=== PATIENT | female | born 1980 | race Caucasian/White ===

== ENCOUNTER 2023-02-13 14:39 | Emergency (ER) | payer MEDICAID, SELFPAY ==
[2023-02-13 15:08] VITALS: BP 141/85; PULSE 86; RESP 16; TEMP 36.6; O2SAT 99
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
--- OUTSIDE RECORDS SUMMARY | 2023-02-13 15:21 | XMS_ITS | Continuity of Care Document ---
Author Name Unknown Organization [facility] Address [address] [place] [address] Care Team Providers Care Technical Agronomist Name Role Phone Eleuterio Bales Primary Care Physician Encounter [facility] Date(s): 10/01/22 - 10/01/[address] [phone] Encounter Diagnosis Cough(Discharge Diagnosis) - 10/01/22 Discharge Disposition: Home or Self Care Attending Physician: Whitney Nettles MD Admitting Physician: Whitney Nettles MD Allergies, Adverse Reactions, Alerts Substance Reaction Severity Status eszopiclone Nausea Unknown Active Assessment and Plan Extracted from: Title:Clinical Document Author:Latosha Au te:10/01/22 Diagnosis: 1. Cough Comment: Diagnosis: Cough Comment: Future Appointments Future Scheduled Tests Radiology* MG Mammo Screening Bilateral w/ Lambert 02/18/22 Functional Status 10/01/22 Family Member Travel History No recent t ravel Recent Travel History No recent travel Other exposure to Infectious Disease Non e Immunizations Given and Recorded Vaccine Date Status Refusal Reason influenza virus vaccine, inactivated 02/12/22 Give n influenza virus vaccine, inactivated 12/27/13 Lamberto rded influenza virus vaccine, inactivated 12/09/09 Lamberto rded influenza virus vaccine, inactivated 02/27/09 Lamberto rded influenza virus vaccine, inactivated 04/02/08 Lamberto rded influenza virus vaccine, inactivated 03/21/07 Lamberto rded influenza virus vaccine, inactivated 12/10/05 Lamberto rded influenza virus vaccine, live 02/21/20 Recorded influenza virus vaccine, live 12/12/17 Recorded influenza virus vaccine, live 11/12/16 Recorded tetanus/diphth/pertuss (Tdap) adult/adol 04/10/14 Recorded tetanus/diphth/pertuss (Tdap) adult/adol 08/05/11 Recorded Novel [id number], all formulation 02/27/09 Recorded rubella virus vaccine 02/15/00 Recorded Medications Albuterol (Eqv-Proventil HFA) 90 mcg/inh inhalation aerosol 2 puffs, Inhale, every 4 hr, PRN cough, # 18 g, 5 Refill(s), 10/02/23 12:35:00 PM CDT, Pharmacy: [facility], 167, cm, 10/01/22 12:48:00 EDT, Height/Length Dosing, 82.55, kg, 10/01/22 12:48:00 EDT, Weight Dosing Start Date: 10/01/22 Stop Date: 10/02/23 Status: Ordered buPROPion 300 mg/24 hours (XL) oral tablet, extended release 300 mg = 1 tab, Oral, Daily, # 90 tab, 3 Refill(s), Pharmacy: [id number] Start Date: 09/10/22 Status: Ordered busPIRone 7.5 mg oral tablet 7.5 mg = 1 tab, Oral, QID, TAKE 1 TABLET BY MOUTH 4 TIMES DAILY NEEDED, # 120 tab, 2 Refill(s), Pharmacy: [facility] Start Date: 08/26/22 Status: Ordered codeine-guaifenesin 10 mg-100 mg/5 mL oral syrup 10 mL, Oral, every 4 hr, PRN as needed for cough, X 7 days, # 120 mL, 0 Refill(s), 10/08/22 12:33:00PM CDT, Pharmacy: [facility], 167, cm, 10/01/22 12:48:00 EDT, Height/Length Dosing, 82.55, kg, 10/01/22 12:48:00 EDT, Weight Dosing Start Date: 10/01/22 Stop Date: 10/08/22 Status: Ordered doxycycline hyclate 100 mg oral capsule 100 mg = 1 cap, Oral, BID, # 14 cap, 0 Refill(s), Pharmacy: [facility], 167, cm, 10/02/2311:48:00 EDT, Height/Length Dosing, 82.55, kg, 10/01/22 12:48:00 EDT, Weight Dosing Start Date: 10/01/22 Stop Date: 10/08/22 Status: Ordered escitalopram 20 mg oral tablet 20 mg = 1 tab, Oral, Daily, # 90 tab, 3 Refill(s), Pharmacy: [id number] Start Date: 03/23/22 Status: Ordered hydrOXYzine hydrochloride 25 mg oral tablet 25 mg = 1 tab, Oral, QID, PRN as needed for anxiety, # 60 tab, 2 Refill(s), Pharmacy: [facility] Start Date: 09/10/22 Status: Ordered ibuprofen 600 mg oral tablet 600 mg = 1 tab, Oral, TID, As needed Start Date: 10/07/21 Status: Ordered Mirena 52 mg intrauteral device 52 mg 1 EA, 0 Refill(s) Start Date: 10/07/21 Status: Ordered Tessalon Perles 100 mg oral capsule 200 mg = 2 cap, Oral, TID, PRN as needed for cough, X 10 days, # 45 cap, 0 Refill(s), 10/11/22 12:33:00 PM CDT, Pharmacy: [facility], 167, cm, 10/01/22 12:48:00 EDT, Height/Length Dosing, 82.55, kg, 10/01/22 12:48:00 EDT, Weight Dosing Start Date: 10/01/22 Stop Date: 10/11/22 Status: Ordered traZODone 50 mg oral tablet 50 mg = 1 tab, Oral, Daily, # 90 tab, 1 Refill(s), Pharmacy: [id number] Start Date: 06/25/22 Status: Ordered Tylenol Extra Strength 500 mg oral tablet 1,000 mg = 2 tab, Oral, every 6 hr, As needed Start Date: 10/07/21 Status: Ordered Problem List Condition Confirmation Course Effective Dates Status Health St atus Informant Abnormal cervical Papanicolaou smear Confirmed Active Anxiety disorder Confirmed Active Anxiety disorder Confirmed Active Chronic obstructive lung disease Confirmed Active Depressive disorder Confirmed Active Disorder of nasal sinus Confirmed Active Gynecologic examination Confirmed Active Insomnia Confirmed Active Migraine Confirmed Active Nicotine dependence Confirmed Active Obesity Confirmed Active Procedures Procedure Date Related Diagnosis Body Site Status Tubal ligation 10/12/11 Completed Results Laboratory List Name Date SARS-CoV-2 (COVID-19)/Flu/RSV ([facility] ) 10/01/22 Most recent to oldest [Reference Range]: 1 SARS-CoV-2(Covid19)PCR([facility]pert COVFLURSV) [Negative] Negative (10/01/22 12:55 PM) Flu A ([facility]pert COVFLURSV) [Negative] Nega tive (10/01/22 12:55 PM) RSV ([facility]pert COVFLURSV) [Negative] Negati ve (10/01/22 12:55 PM) Flu B ([facility]Xpert COVFLURSV) [Negative] Nega tive (10/01/22 12:55 PM) Vital Signs Most recent to oldest [Reference Range]: 1 2 Temperature Temporal Artery [36-38 Deg C ] 36.2 Deg C (10/01/22 12:45 PM) Peripheral Pulse Rate [60-100 bpm] 93 bp m (10/01/22 12:45 PM) Respiratory Rate [12-24 br/min] 16 br/mi n (10/01/22 1:13 PM) 18 br/min (10/01/22 12:45 PM) Blood Pressure [90-140/60-90 mmHg] 124/1 05mmHg (10/01/22 12:45 PM) Weight Dosing 82.55 kg (10/01/22 12:48 PM) Weight Estimated 82.55 kg (10/01/22 12:45 PM) Height/Length Dosing 167.000 cm (10/01/22 12:48 PM) Height/Length Estimated 167.000 cm (10/01/22 12:45 PM) Social History Social History Type Response Tobacco Never tobacco user T obacco Use:. Sex Female Hospital Discharge Instructions Patient Education 10/01/2022 12:36:45 Cough, Adult Cough, Adult Coughing is a reflex that clears your throat and your airways (respiratory system). Coughing helps to heal and protect your lungs. It is normal to cough occasionally, but a cough that happens with other symptoms or lasts a long time may be a sign of a condition that needs treatment. An acute cough may only last 2???3 weeks, while a chronic cough may last 8 or more weeks. Coughing is commonly caused by: ??? Infection of the respiratory systemby viruses or bacteria. ??? Breathing in substances that irritate your lungs. ??? Allergies. ??? Asthma. ??? Mucus that runs down the back of your throat (postnasal drip). ??? Smoking. ??? Acid backing up from the stomach into the esophagus (gastroesophageal reflux). ??? Certain medicines. ??? Chronic lung problems. ??? Other medical conditions such as heart failure or a blood clot in the lung (pulmonary embolism). Follow these instructions at home: Medicines ??? Take tfss-qjd-qlcskwl and prescription medicines only as told by your health care provider. ??? Talk with your health care provider before you take a cough suppressant medicine. Lifestyle ??? Avoid cigarette smoke. Do not use any products that contain nicotine or tobacco, such as cigarettes, e-cigarettes, and chewing tobacco. If you need help quitting, ask your health care provider. ??? Drink enough fluid to keep your urine pale yellow. ??? Avoid caffeine. ??? Do not drink alcohol if your health care provider tells you not to drink. General instructions ??? Pay close attention to changes in your cough. Tell your health care provider about them. ??? Always cover your mouth when you cough. ??? Avoid things that make you cough, such as perfume, candles, cleaning products, or campfire or tobacco smoke. ??? If the air is dry, use a cool mist vaporizer or humidifier in your bedroom or your home to helploosen secretions. ??? If your cough is worse at night, try to sleep in a semi-upright position. ??? Rest as needed. ??? Keep all follow-up visits as told by your health care provider. This is important. Contact a health care provider if you: ??? Have new symptoms. ??? Cough up pus. ??? Have a cough that does not get better after 2???3 weeks or gets worse. ??? Cannot control your cough with cough suppressant medicines and you are losing sleep. ??? Have pain that gets worse or pain that is not helped with medicine. ??? Have a fever. ??? Have unexplained weight loss. ??? Have night sweats. Get help right away if: ??? You cough up blood. ??? You have difficulty breathing. ??? Your heartbeat is very fast. These symptoms may represent a serious problem that is an emergency. Do not wait to see if the symptoms will go away. Get medical help right away. Call your local emergency services (911 in the [place] Do not drive yourself to the hospital. Summary ??? Coughing is a reflex that clears your throat and your airways. It is normal to cough occasionally, but a cough that happens with other symptoms or lasts a long time may be a sign of a condition that needs treatment. ??? Take prql-ubo-yuaetnd and prescription medicines only as told by your health care provider. ??? Always cover your mouth when you cough. ??? Contact a health care provider if you have new symptoms or a cough that does not get better after 2???3 weeks or gets worse. This information is not intended to replace advice given to you by your health care provider. Make sure you discuss any questions you have with your health care provider. Document Revised: 02/19/2019 Document Reviewed: 02/19/2019 [employer] Patient Education ?? 2022 [employer] Follow Up Care 10/01/2022 12:45:09 With:Follow up with primary care provider Address: When:1 to 2 weeks Physician Emergency department Note * Whitney Nettles MD: PERFORM Event Display: ED Note Physician Authored Date: [id number] YAKELIN KYLE M :1980 Age:42 years Sex:Female Visit Date:10/01/2022 Primary Care Physician: Eleuterio Bales NP Basic Information Time Seen: Whitney Nettles MD / 10/01/2022 12:50 Chief Complaint Coughing and chest pain for multiple days now. 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 Patient tried to get into her primary care provider andthey could not see her until Tuesday.?? Patient reports she has not slept well??because of her cough??and nasal congestion. ??Patient reports??temperature this morning was 99.2??diaphoretic when she woke up??no ear pain??although??slightly congested??slight sore throat??mostly nonproductive cough nonausea no vomiting no extremity edema no skin rashes. ??Patient reports her daughter has??asthma she??herself does not have a history of asthma. Review of Systems: see hpi for ros Physical Exam Vitals & Measurements T:??36.2?C ??(Temporal Artery)?? HR:??93??(Peripheral)?? RR:??16?? BP:??124/105?? SpO2:??96%?? HT:??167.000??cm?? WT:??82.55??kg??(Estimated)?? Pain Score:??6?? O2 Therapy:??Room air?? General: Alert and oriented, well nourished,?No??acute distress Eye: PER?Normal??conjunctiva,??No??scleral icterus HENT: Normocephalic,??nontraumatic??Normal hearing??the erythema posterior pharynx??consistent withcough??tympanic membrane is clear bilaterally Lungs: Clear to auscultation??except for coarse??scattered wheezing throughout,?Non-labored?? respiration Heart:?Normal?? rate,?Regular??rhythm,?No??murmur,?No??gallop,?No??edema Chest: wall excursion wnl no abnormal movements no obvious deformities Musculoskeletal:?Normal?? range of motion and strength,?No??tenderness,?No??swelling Skin: Skin is warm, dry and pink,?No??rashes,?No??lesions Neurologic: Awake, alert and oriented X4 Psychiatric: Cooperative, appropriate mood and affect Medical Decision Making: For MDM please see under assessment and plan Procedure No Qualifying Data Assessment/Plan 1.??Cough??R05.9 Patient with upper respiratory infection chest x-ray with early pneumonia so patient will be placedon doxycycline 100 mg twice a day??for 7??days.?? Prescription for Tessalon Perles and Robitussin with codeine are sent to the pharmacy.?? Albuterol inhaler is also sent to the pharmacy patient had 2puffs of an albuterol??inhaler??here in the emergency department and??she felt that it??improved??her symptoms. Ordered: Albuterol (Eqv-Proventil HFA) 90 mcg/inh inhalation aerosol, 2 puffs, Inhale, every 4 hr, PRN cough, # 18 g, 5 Refill(s), 10/02/23 13:35:00 EDT, Pharmacy: [facility], 167, cm, 10/01/22 12:48:00 EDT, Height/Length Dosing, 82.55, kg, 10/01/22 12:48:00 EDT, Weight Dosing Tessalon Perles 100 mg oral capsule, 200 mg = 2 cap, Oral, TID, PRN as needed for cough, X 10 days,# 45 cap, 0 Refill(s), 10/11/22 13:33:00 EDT, Pharmacy: [facility], 167, cm, 10/01/22 12:48:00 EDT, Height/Length Dosing, 82.55, kg, 10/01/22 12:48:00 EDT, Weight Dosing codeine-guaifenesin 10 mg-100 mg/5 mL oral syrup, 10 mL, Oral, every 4 hr, PRN as needed for cough,X 7 days, # 120 mL, 0 Refill(s), 10/08/22 13:33:00 EDT, Pharmacy: [facility], 167, cm, 10/01/22 12:48:00 EDT, Height/Length Dosing, 82.55, kg, 10/01/22 12:48:00 EDT, Weight Dosing doxycycline hyclate 100 mg oral capsule, 100 mg = 1 cap, Oral, BID, # 14 cap, 0 Refill(s), Pharmacy: [facility], 167, cm, 10/01/22 12:48:00 EDT, Height/Length Dosing, 82.55, kg, 10/01/22 12:48:00 EDT, Weight Dosing Discharge Patient, 10/01/22 13:33:00 EDT, Home Independently, Constant Indicator ?? Patient Education Cough, Adult Follow Up With When Contact Information Follow up with primary care provider Within 1 to 2 weeks Additional Instructions: Medication Reconciliation New Prescription albuterol (Albuterol (Eqv-Proventil HFA) 90 mcg/inh inhalation aerosol)2 Puffs Inhale (breathe in) every 4 hours as needed cough. Refills: 5. ?? benzonatate (Tessalon Perles 100 mg oral capsule)2 Capsules Oral (given by mouth) 3 times a day as needed as needed for cough for 10 Days. Refills: 0. ?? codeine-guaifenesin (codeine-guaifenesin 10 mg-100 mg/5 mL oral syrup)10 Milliliters Oral (given bymouth) every 4 hours as needed as needed for cough for 7 Days. Refills: 0. ?? doxycycline (doxycycline hyclate 100 mg oral capsule)1 Capsules Oral (given by mouth) 2 times a dayfor 7 Days. Refills: 0. ?? Unchanged acetaminophen (Tylenol Extra Strength 500 mg oral tablet)2 tab Oral (given by mouth) every 6 hours.As needed. ?? buPROPion (buPROPion 300 mg/24 hours (XL) oral tablet, extended release)1 tab Oral (given by mouth)every day. Refills: 3. ?? busPIRone (busPIRone 7.5 mg oral tablet)1 tab Oral (given by mouth) 4 times a day. TAKE 1 TABLET BYMOUTH 4 TIMES DAILY NEEDED. Refills: 2. ?? escitalopram (escitalopram 20 mg oral tablet)1 tab Oral (given by mouth) every day. Refills: 3. ?? hydrOXYzine (hydrOXYzine hydrochloride 25 mg oral tablet)1 tab Oral (given by mouth) 4 times a day as needed as needed for anxiety. Refills: 2. ?? ibuprofen (ibuprofen 600 mg oral tablet)1 tab Oral (given by mouth) 3 times a day. As needed. ?? levonorgestrel (Mirena 52 mg intrauteral device)1 Each. ?? traZODone (traZODone 50 mg oral tablet)1 tab Oral (given by mouth) every day. Refills: 1. Problem List/Past Medical History Ongoing Abnormal cervical Papanicolaou smear Anxiety disorder Anxiety disorder Chronic obstructive lung disease Depressive disorder Disorder of nasal sinus Gynecologic examination Insomnia Migraine Nicotine dependence Obesity Historical No qualifying data Procedure/Surgical History ???Tubal ligation (10/13/2011) Medication Administration Given Albuterol (Eqv-ProAir HFA) 90 mcg/inh inhalation aerosol, 2 inh, Inhale. For: Cough Allergies eszopiclone??(Nausea) Social History Alcohol Current, 1-2 times per year Electronic Cigarette/Vaping Electronic Cigarette Use: Former use, quit more than 90 days ago. Employment/School Unemployed Home/Environment Lives with Children, Significant other. Nutrition/Health Diet: Regular. Substance Use Never Tobacco Never tobacco user Tobacco Use:. Family History Allergy: Brother. Asthma: Brother. Electronically Signed on 10/01/22 01:41 PM Whitney Nettles MD Emergency department Discharge instructions * Whitney Nettles MD: PERFORM Event Display: ED Discharge Information Authored Date: [id number] YAKELIN KYLE M :1980 Age:42 years Sex:Female Visit Date:10/01/2022 Primary Care Physician: Eleuterio Bales TRANSPORT RN Discharge Instructions We would like to thank you for allowing us to assist you with your healthcare needs. The following includes patient education materials and information regarding your injury/illness. Diagnosis from Today's Visit Cough Discharge Vitals Temperature??(Temporal Artery) 97.2 ??F (36.2 ??C) Heart Rate??(Peripheral) 93 Respiratory Rate?? 16 Blood Pressure?? 124/105?? Height?? 65.75 in (167.000 cm) Weight??(Estimated) 182.02 lb (82.55 kg) Allergies eszopiclone??(Nausea) What to Do Next Instructions from Your Care Team You may take??Robitussin with codeine up to 10 cc every 4 hours as needed for cough this may make you tired and sleepy so be careful when you take it.?? You may take Tessalon Perles (benzonatate)??upto 200 mg 3 times a day as needed for cough.?? Take??doxycycline 100 mg twice a day for 7 days. ??If you worsen return to the emergency department or see primary care provider. You Need to Schedule the Following Appointments Follow Up with??Follow up with primary care provider When:??Within 1 to 2 weeks Upcoming Scheduled Appointments Tuesday 12:40 PM EST ?? You were treated today on an emergency basis; it may be lam to contact your primary care provider to notify them of your visit today. You may have been referred to your regular doctor or a specialist, please follow up as instructed. If your condition worsens or you can't get in to see the doctor, contact the Emergency Department. Medications What How Much When Why Instructions Next Dose New albuterol (Albuterol (Eqv- Proventil HFA) 90 mcg/ inh inhalation aerosol) 2 Puffs Inhale (breathe in) Every 4 hours as needed for cough Cough Refills: 5 Pickup at [facility] New benzonatate (Tessalon Perles 100 mg oral capsule) 2 Capsules Oral (given by mouth) 3 times a day as needed for as needed for cough Cough Duration: 10 Days Pickup at [facility] New codeine-guaifenesin (codeine-guaifenesin 10 mg-100 mg/ 5 mL oral syrup) 10 Milliliters Oral (given by mouth) Every 4 hours as needed for as needed for cough Cough Duration: 7 Days Pickup at [facility] New doxycycline (doxycycline hyclate 100 mg oral capsule) 1 Capsules Oral (given by mouth) 2 times a day Cough Duration: 7 Days Pickup at [facility] Unchanged acetaminophen (Tylenol Extra Strength 500 mg oral tablet) 2 tab Oral (given by mouth) Every 6 hours As needed ?? Unchanged buPROPion (buPROPion 300 mg/ 24 hours (XL) oral tablet, extended release) 1 tab Oral (given by mouth) Every day Depressive disorder Anxiety disorder Unchanged busPIRone (busPIRone 7.5 mg oral tablet) 1 tab Oral (given by mouth) 4 times a day Anxiety disorder Depressive disorder TAKE 1 TABLET BY MOUTH 4 TIMES DAILY NEEDED ?? Unchanged escitalopram (escitalopram 20 mg oral tablet) 1 tab Oral (given by mouth) Every day Unchanged hydrOXYzine (hydrOXYzine hydrochloride 25 mg oral tablet) 1 tab Oral (given by mouth) 4 times a day as needed for as needed for anxiety Anxiety attack Unchanged ibuprofen (ibuprofen 600 mg oral tablet) 1 tab Oral (given by mouth) 3 times a day As needed ?? Unchanged levonorgestrel (Mirena 52 mg intrauteral device) 1 Each Unchanged traZODone (traZODone 50 mg oral tablet) 1 tab Oral (given by mouth) Every day Depressive disorder Pharmacy Information [facility]: [address], [place] [id number] [phone] Education Materials Cough, Adult Coughing is a reflex that clears your throat and your airways (respiratory system). Coughing helps to heal and protect your lungs. It is normal to cough occasionally, but a cough that happens with other symptoms or lasts a long time may be a sign of a condition that needs treatment. An acute cough may only last 2???3 weeks, while a chronic cough may last 8 or more weeks. Coughing is commonly caused by: ? Infection of the respiratory systemby viruses or bacteria. ? Breathing in substances that irritate your lungs. ? Allergies. ? Asthma. ? Mucus that runs down the back of your throat (postnasal drip). ? Smoking. ? Acid backing up from the stomach into the esophagus (gastroesophageal reflux). ? Certain medicines. ? Chronic lung problems. ? Other medical conditions such as heart failure or a blood clot in the lung (pulmonary embolism). Follow these instructions at home: Medicines ? Take nngt-dtw-hruzpud and prescription medicines only as told by your health care provider. ? Talk with your health care provider before you take a cough suppressant medicine. Lifestyle ? Avoid cigarette smoke. Do not use any products that contain nicotine or tobacco, such as cigarettes, e-cigarettes, and chewing tobacco. If you need help quitting, ask your health care provider. ? Drink enough fluid to keep your urine pale yellow. ? Avoid caffeine. ? Do not drink alcohol if your health care provider tells you not to drink. General instructions ? Pay close attention to changes in your cough. Tell your health care provider about them. ? Always cover your mouth when you cough. ? Avoid things that make you cough, such as perfume, candles, cleaning products, or campfire or tobacco smoke. ? If the air is dry, use a cool mist vaporizer or humidifier in your bedroom or your home to help loosen secretions. ? If your cough is worse at night, try to sleep in a semi-upright position. ? Rest as needed. ? Keep all follow-up visits as told by your health care provider. This is important. Contact a health care provider if you: ? Have new symptoms. ? Cough up pus. ? Have a cough that does not get better after 2???3 weeks or gets worse. ? Cannot control your cough with cough suppressant medicines and you are losing sleep. ? Have pain that gets worse or pain that is not helped with medicine. ? Have a fever. ? Have unexplained weight loss. ? Have night sweats. Get help right away if: ? You cough up blood. ? You have difficulty breathing. ? Your heartbeat is very fast. These symptoms may represent a serious problem that is an emergency. Do not wait to see if the symptoms will go away. Get medical help right away. Call your local emergency services (911 in the [place] Do not drive yourself to the hospital. Summary ? Coughing is a reflex that clears your throat and your airways. It is normal to cough occasionally, but a cough that happens with other symptoms or lasts a long time may be a sign of a condition that needs treatment. ? Take hono-qxt-wntcgyy and prescription medicines only as told by your health care provider. ? Always cover your mouth when you cough. ? Contact a health care provider if you have new symptoms or a cough that does not get better after 2???3 weeks or gets worse. This information is not intended to replace advice given to you by your health care provider. Make sure you discuss any questions you have with your health care provider. Document Revised: 02/19/2019 Document Reviewed: 02/19/2019 Else[employer] Patient Education ?? 2022 [employer] Tests Performed Medications and Immunizations Administered Given Albuterol (Eqv-ProAir HFA) 90 mcg/inh inhalation aerosol, 2 inh, Inhale. For: Cough Patient/Cavalry Scout Signature Patient Name:KYLE HAMLIN I have received this information and my questions have been answered. Patient/Cavalry Scout Name: Patient/Cavalry Scout Signature: Relationship to Patient: Witness Name/Signature: Date: Electronically Signed on: 10/01/2022 13:37 EDTSigned by:AMS Discharge summary * Latosha Au: PERFORM Event Display: Discharge Note Authored Date: [id number] * Latosha Au: PERFORM Event Display: Discharge Note Authored Date: [id number] Diagnosis: 1. Cough Comment: Diagnosis: Cough Comment: Electronically Signed on 10/01/22 03:38 PM Latosha Au Patient Care team information Care Team Personnel Name: Eleuterio Bales TRANSPORT RN Position: Physician Member Role: Informed Provider Name: Nicho Duvall RN Position: Nurse Member Role: ED Nurse Name: Whitney Nettles MD Position: Physician Member Role: ED Physician Address: Address: [address] [place] [id number]- Care Team Related Persons Name: DAVID CASTRO Address: Home [address], [place] [id number] Name: GREG MARIE
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
[2023-02-13 18:44] VITALS: BP 141/85; PULSE 86; RESP 16; TEMP 36.6; O2SAT 99
== END 2023-02-13 15:37 | disposition home or self-care (01) ==
LOC: ER 15:20
PROVIDERS: Emergency Provider Physician Assistant
DX: L03.115 Cellulitis of right lower limb (principal); T25.021A Burn of unspecified degree of right foot, initial encounter; X11.8XXA Contact with other hot tap-water, initial encounter
CPT/HCPCS: 99283